=== PATIENT | female | born 1995 | race Caucasian/White ===

== ENCOUNTER 2021-09-23 15:14 | Outpatient (CLI) | payer OTHER, MEDICAID, SELFPAY | END 2021-09-23 15:15 | disposition home or self-care (01) | LOC: NFLDREF 15:14 | PROVIDERS: PCP Family Medicine; Visit Provider Advanced Practice Midwife | DX: Z30.9 Encounter for contraceptive management, unspecified (principal); Z12.4 Encounter for screening for malignant neoplasm of cervix | CPT/HCPCS: 88174 ==

== ENCOUNTER 2022-03-25 09:21 | Outpatient (CLI) | payer OTHER, MEDICAID, SELFPAY ==
[2022-03-25 12:17] LABS: Chloride* 108 mmol/L (96-114); Potassium* 3.8 mmol/L (3.6-5.1); Sodium* 142 mmol/L (135-149)
[2022-03-25 12:20] LABS: Blood Urea Nitrogen* 14 mg/dL (5-24); Carbon Dioxide* 25 mmol/L (20-32); Creatinine* 0.7 mg/dL (0.5-1.5); Estimated Glomerular Filt Rate 123 ml/min
[2022-03-25 12:21] LABS: Calcium* 9.1 mg/dL (8.4-10.6); Glucose* 105 mg/dL (60-115)
[2022-03-25 12:51] LABS: Ferritin* 31.7 ng/mL (6.24-137.0)
== END 2022-03-25 09:22 | disposition home or self-care (01) ==
PROVIDERS: PCP Family Medicine; Visit Provider Family Medicine
DX: R42 Dizziness and giddiness (principal)
CPT/HCPCS: 80048; 82728; 84443

== ENCOUNTER 2022-06-09 08:30 | Outpatient (CLI) | payer OTHER, MEDICAID, SELFPAY | END 2022-06-09 08:31 | disposition home or self-care (01) | LOC: NFLDREF 19:55 | PROVIDERS: PCP Family Medicine; Referring Provider Family Medicine; Visit Provider Physician Assistant | DX: R19.7 Diarrhea, unspecified (principal) | CPT/HCPCS: 87493; 87505 ==

== ENCOUNTER 2024-01-02 10:02 | Outpatient (CLI) | payer BC, SELFPAY ==
[2024-01-02 15:30] LABS: Chlamydia DNA Amplified* NOT DETECTED (No Detected); GC DNA Amplified* NOT DETECTED (No Detected)
== END 2024-01-02 10:03 | disposition home or self-care (01) ==
PROVIDERS: PCP Family Medicine; Visit Provider Obstetrics & Gynecology
DX: Z01.419 Encounter for gynecological examination (general) (routine) without abnormal findings (principal); N89.8 Other specified noninflammatory disorders of vagina; R03.0 Elevated blood-pressure reading, without diagnosis of hypertension; Z11.3 Encounter for screening for infections with a predominantly sexual mode of transmission
CPT/HCPCS: 87491; 87591

== ENCOUNTER 2024-01-03 09:02 | Outpatient (CLI) | payer BC, SELFPAY | END 2024-01-03 09:03 | disposition home or self-care (01) | LOC: NFLDREF 15:13 | PROVIDERS: PCP Family Medicine; Referring Provider Family Medicine; Visit Provider Obstetrics & Gynecology | DX: Z01.419 Encounter for gynecological examination (general) (routine) without abnormal findings (principal); R03.0 Elevated blood-pressure reading, without diagnosis of hypertension; Z11.3 Encounter for screening for infections with a predominantly sexual mode of transmission; Z13.6 Encounter for screening for cardiovascular disorders; Z13.1 Encounter for screening for diabetes mellitus; Z11.59 Encounter for screening for other viral diseases | CPT/HCPCS: 80051; 80061; 82947; 86592; 86703; 86803; 87340 ==

== ENCOUNTER 2025-02-11 15:04 | Outpatient (CLI) | payer OTHER, BC, SELFPAY ==
[2025-02-11 23:44] LABS: Hepatitis B Surface Antibody* Negative (Negative)
== END 2025-02-11 15:05 | disposition home or self-care (01) ==
PROVIDERS: PCP Family Medicine; Visit Provider Family Medicine
DX: Z77.21 Contact with and (suspected) exposure to potentially hazardous body fluids (principal); Z13.6 Encounter for screening for cardiovascular disorders
CPT/HCPCS: 80048; 80061; 85025; 86703; 86706; 86803; 87340